=== PATIENT | female | born 1955 | race Two or more races ===

== ENCOUNTER 2018-08-09 11:02 | Outpatient (CLI) | payer OTHER ==
[~2018-08-09 11:02] MED LIST: CLONAZEPAM0.5 MG; GABAPENTIN400 MG; GLIMEPIRIDE4 MG; LASIX20 MG; METFORMIN HCL500 MG; PNEU16DI2; ZESTRIL20 MG
== END 2018-08-09 11:15 | disposition home or self-care (01) ==
LOC: RAD 11:02
DX: M25.561 Pain in right knee (principal); M25.562 Pain in left knee

== ENCOUNTER 2018-08-15 08:24 | Outpatient (CLI) | payer OTHER | END 2018-08-15 08:27 | disposition home or self-care (01) | LOC: MAMO-SONO 08:24 | DX: Z12.31 Encounter for screening mammogram for malignant neoplasm of breast (principal); Z87.898 Personal history of other specified conditions ==

== ENCOUNTER 2020-04-09 19:57 | Inpatient (IN) | payer OTHER ==
[~2020-04-09] VITALS: Ht 162.6 cm; Wt 77.1 kg
[2020-04-09] MEDS ORDERED: ZANAFLEX2 M1 (20:21)
[2020-04-09] MEDS ORDERED: VASOTEC20 M1 (20:21)
[2020-04-09] MEDS ORDERED: AMLODIPINE-OLM1 EAC2 (20:22)
[2020-04-09] MEDS ORDERED: ACTOS45 MG (20:22)
[2020-04-09] MEDS ORDERED: NAPR500T14 (20:22)
[2020-04-09] MEDS ORDERED: SIMVASTATIN5 MG (20:23)
[2020-04-12] MEDS ORDERED: Lantus 1000 UNITS/10 SUBCUTANEO (12:35)
[2020-04-12] MEDS ORDERED: SIMVASTATIN20 MG PO (12:35)
[2020-04-12] MEDS ORDERED: VASOTEC20 M1 PO (12:35)
[2020-04-12] MEDS ORDERED: HUMALOG100 UNIT/1 SUBCUTANEO (12:35)
[2020-04-12] MEDS ORDERED: AMLODIPINE BESYL5 MG PO (12:35)
== END 2020-04-12 14:00 | disposition home or self-care (01) | DRG 638 ==
LOC: ER 19:57 → ICU-2 23:57 → MEDJ 04-10 13:18
PROVIDERS: ADMIT Specialist; ATTEND Specialist
DX: E11.10 Type 2 diabetes mellitus with ketoacidosis without coma (principal); L02.31 Cutaneous abscess of buttock; Z20.828 Contact with and (suspected) exposure to other viral communicable diseases; E11.44 Type 2 diabetes mellitus with diabetic amyotrophy; E11.65 Type 2 diabetes mellitus with hyperglycemia; I11.9 Hypertensive heart disease without heart failure

== ENCOUNTER 2020-10-28 12:26 | Outpatient (CLI) | payer OTHER ==
[~2020-10-28 12:26] MED LIST changes: +ACTOS45 MG; +AMLODIPINE BESYL5 MG PO; +AMLODIPINE-OLM1 EAC2; +HUMALOG100 UNIT/1 SUBCUTANEO; +Lantus 1000 UNITS/10 SUBCUTANEO; +NAPR500T14; +SIMVASTATIN20 MG PO; +SIMVASTATIN5 MG; +VASOTEC20 M1; +VASOTEC20 M1 PO; +ZANAFLEX2 M1
== END 2020-10-28 12:30 | disposition home or self-care (01) ==
LOC: MAMO-SONO 12:26
PROVIDERS: ATTEND Specialist
DX: Z12.31 Encounter for screening mammogram for malignant neoplasm of breast (principal)

== ENCOUNTER 2023-03-10 08:34 | Outpatient (CLI) | payer OTHER | END 2023-03-10 08:39 | disposition home or self-care (01) | LOC: RAD 08:34 | PROVIDERS: ATTEND Specialist | DX: M25.562 Pain in left knee (principal); M25.561 Pain in right knee ==

== ENCOUNTER 2023-07-06 12:12 | Outpatient (CLI) | payer OTHER | END 2023-07-06 12:19 | disposition home or self-care (01) | LOC: MAMO-SONO 12:12 | PROVIDERS: ATTEND Specialist | DX: Z12.31 Encounter for screening mammogram for malignant neoplasm of breast (principal) ==

== ENCOUNTER 2023-11-21 18:21 | Emergency (ER) | payer OTHER ==
[~2023-11-21] VITALS: Ht 162.6 cm; Wt 86.2 kg
[2023-11-21 20:13] LABS: HEMATOCRIT 37.2 % (36.0-45.00); HEMOGLOBIN 12.3 g/dL (12.0-15.00); MEAN CELL VOLUME 81.6 fL (80.00-100.00); MEAN CORPUSCULAR HEMOGLOBIN 27.1 pg (27.00-32.0); MEAN CORPUSCULAR HGB CONC 33.2 g/dl (32.0-36.0); PLATELET COUNT 308 K/uL (150-450); RED BLOOD COUNT 4.56 M/uL (4.00-6.00); RED CELL DISTRIBUTION WIDTH 13.2 % (11.5-14.5)
[2023-11-21 20:32] LABS: URINE APPEARANCE Cloudy; URINE BILIRRUBIN Negative (NEGATIVE); URINE BLOOD Large; URINE COLOR Orange; URINE LEUKOCYTE Small; URINE NITRATE Negative; URINE PROTEIN Trace (NEGATIVE)
[2023-11-21 20:34] LABS: INR 0.96; PARTIAL THROMBOPLASTIN TIME 23.9 SECONDS (22.0-34.0); PROTHROMBIN TIME 10.1 SECONDS (9.0-11.5)
[2023-11-21 20:35] LABS: CREATININE SERUM 1.15 mg/dL (0.55-1.02); GFR 46.92; POTASSIUM 4.36 mEq/L (3.5-5.1)
[2023-11-21 20:37] LABS: URINE BACTERIA 149.9 uL (0.0-1933); URINE EPITHELIAL CELLS 10.8 uL (0.0-38.8); URINE WBC 259.1 uL (0.0-23.2)
[2023-11-21 21:12] LABS: URINE GLUCOSE >=1000 MG/DL (NEGATIVE); URINE RBC > 10558.9 uL (0.0-20.8)
== END 2023-11-22 00:03 | disposition home or self-care (01) ==
LOC: ER 18:22
PROVIDERS: General Practice
DX: N94.89 Other specified conditions associated with female genital organs and menstrual cycle (principal); N93.8 Other specified abnormal uterine and vaginal bleeding; I10 Essential (primary) hypertension; E11.9 Type 2 diabetes mellitus without complications; Z79.84 Long term (current) use of oral hypoglycemic drugs; Z88.0 Allergy status to penicillin

== ENCOUNTER 2024-01-20 10:34 | Outpatient (CLI) | payer OTHER ==
[2024-01-20 11:48] LABS: CREATININE SERUM 0.86 mg/dL (0.55-1.02)
== END 2024-01-20 10:35 | disposition home or self-care (01) ==
LOC: LAB 10:34
PROVIDERS: ATTEND Radiology Diagnostic Radiology
DX: C54.0 Malignant neoplasm of isthmus uteri (principal)

== ENCOUNTER 2024-02-03 08:34 | Outpatient (CLI) | payer OTHER | END 2024-02-03 08:49 | disposition home or self-care (01) | LOC: TOM 08:34 | PROVIDERS: ATTEND Obstetrics & Gynecology | DX: C54.0 Malignant neoplasm of isthmus uteri (principal) | CPT/HCPCS: 74178; Q9965 ==

== ENCOUNTER 2024-09-04 08:00 | Outpatient (CLI) | payer OTHER | END 2024-09-04 23:00 | disposition home or self-care (01) | LOC: EKG 08:00 → LAB 09-06 07:52 → EKG 09-06 07:53 | PROVIDERS: ATTEND Specialist | DX: R00.2 Palpitations (principal); I11.9 Hypertensive heart disease without heart failure ==

== ENCOUNTER 2024-10-16 16:18 | Emergency (ER) | payer OTHER ==
[~2024-10-16] VITALS: Ht 162.6 cm; Wt 73.9 kg
[2024-10-16] MEDS ORDERED: ELIQUIS5 M1 (18:07)
[2024-10-16] MEDS ORDERED: CARVEDILOL12.5 MG (18:07)
[2024-10-16] MEDS ORDERED: IPRATROPIUM BROMIDE 0.5 MG/2.5 ML AMPUL.NEB IH SCH (19:30)
[2024-10-16] MEDS ORDERED: LEVALBUTEROL HCL 0.63 MG/3 ML SOLUTION IH SCH (19:30)
[2024-10-16] MEDS ORDERED: METHYLPREDNISOLONE SOD SUCC 125 MG VIAL IV ONE (19:30)
[2024-10-16 19:54] LABS: BASO % 0.6 % (0.1-1.2); EOS # 0.02 (0.04-0.54); EOS % 0.3 % (0.7-7.0); HEMATOCRIT 38.4 % (34.1-44.9); MEAN CORPUSCULAR HEMOGLOBIN 24.9 pg (25.6-32.2); MONO % 6.5 % (4.7-12.5); NEUT % 45.4 % (34.0-71.1); PLATELET COUNT 196 K/uL (163-369); RED BLOOD COUNT 4.82 M/uL (3.93-5.22); RED CELL DISTRIBUTION WIDTH 14.6 % (11.6-14.4)
[2024-10-16] MEDS ORDERED: LEVALBUTEROL HCL 0.63 MG/3 ML SOLUTION IH ONE (20:05)
[2024-10-16] MEDS ORDERED: IPRATROPIUM BROMIDE 0.5 MG/2.5 ML AMPUL.NEB IH ONE (20:05)
[2024-10-16 20:24] LABS: BASE EXCESS -4.7 mmol/l; BICARBONATE 16.9 mmol/l (23-25); SaO2 97.1 %; Tco2 17.6 mmol/l
[2024-10-16 20:26] LABS: ABG pCO2 23.7 mmHg (35-45); allen test SATISFACTORY; mode ROOM AIR; o2 21 %; puncture site RADIAL LEFT
[2024-10-16 21:12] LABS: COVID-19 AG POSITIVE (NEGATIVE)
[2024-10-16 21:30] LABS: INFLUENZA A AG NEGATIVE (NEGATIVE); INFLUENZA B AG NEGATIVE (NEGATIVE)
== END 2024-10-16 21:44 | disposition home or self-care (01) ==
LOC: ER 16:43
PROVIDERS: Emergency Medicine
DX: I10 Essential (primary) hypertension (principal); J45.901 Unspecified asthma with (acute) exacerbation; Z88.0 Allergy status to penicillin; I49.8 Other specified cardiac arrhythmias; U07.1 COVID-19
CPT/HCPCS: 36415; 71046; 82803; 94640; 96365; 99284; J3490

== ENCOUNTER → 2024-10-20 08:43 | Outpatient (CLI) | payer OTHER ==
[~2024-10-20 08:43] MED LIST changes: +CARVEDILOL12.5 MG; +ELIQUIS5 M1
[2024-10-20 09:25] LABS: PH,URINE 5.5 (5.0-8.0); URINE APPEARANCE Cloudy; URINE BILIRRUBIN Negative (NEGATIVE); URINE BLOOD Negative; URINE COLOR Dark Yellow; URINE GLUCOSE Negative (NEGATIVE); URINE KETONE Trace (NEGATIVE); URINE LEUKOCYTE Small; URINE NITRATE Negative
[2024-10-20 09:29] LABS: URINE BACTERIA 287.6 uL (0.0-1933); URINE CAST 3.68 uL (0.0-1.40); URINE EPITHELIAL CELLS 41.1 uL (0.0-38.8); URINE RBC 4.8 uL (0.0-20.8); URINE WBC 41.9 uL (0.0-23.2)
[2024-10-20 10:07] LABS: CALCIUM 8.6 mg/dL (8.5-10.1); CREATININE SERUM 1.06 mg/dL (0.55-1.02); GFR 51.55; POTASSIUM 3.6 mEq/L (3.5-5.1)
[2024-10-20 10:38] LABS: URINE MUCUS MODERATE; URINE PROTEIN 100 (NEGATIVE)
== END | disposition home or self-care (01) ==
LOC: LAB 08:43
PROVIDERS: ATTEND Specialist
DX: E11.65 Type 2 diabetes mellitus with hyperglycemia (principal); N39.0 Urinary tract infection, site not specified

== ENCOUNTER 2024-10-23 08:20 | Outpatient (CLI) | payer OTHER | END 2024-10-23 08:21 | disposition home or self-care (01) | LOC: NUCLEAR 08:20 | PROVIDERS: ATTEND Specialist | DX: I48.91 Unspecified atrial fibrillation (principal); I10 Essential (primary) hypertension ==

== ENCOUNTER 2024-12-03 17:26 | Inpatient (IN) | payer OTHER ==
[~2024-12-03] VITALS: Ht 162.6 cm; Wt 72.6 kg
[2024-12-03] MEDS ORDERED: FAMOTIDINE/PF 20 MG in 0.9 % SODIUM CHLORIDE 8 ML IV PUSH STA (18:06)
[2024-12-03] MEDS ORDERED: ONDANSETRON HCL 2 MG/ML VIAL ONE (18:07)
[2024-12-03] MEDS ORDERED: FAMOTIDINE/PF 20 MG/2 ML VIAL ONE ×2 (18:08→23:28)
[2024-12-03] MEDS ORDERED: 0.9 % SODIUM CHLORIDE 1,000 ML IV SCH (18:15)
[2024-12-03] MEDS ORDERED: ONDANSETRON HCL 2 MG/ML VIAL IV ONE (18:15)
[2024-12-03] MEDS ORDERED: INSULIN REGULAR, HUMAN 1,000 UNIT/10 ML UNITS IV ONE (18:15)
[2024-12-03 18:50] LABS: BASO % 0.2 % (0.1-1.2); EOS # 0.02 (0.04-0.54); EOS % 0.2 % (0.7-7.0); LYMPH # 1.87 (1.18-3.74); LYMPH % 18.6 % (19.3-53.1); MEAN PLATELET VOLUME 12.70 fl (9.4-12.4); MONO # 0.60 (0.24-0.82); MONO % 6.0 % (4.7-12.5); NEUT # 7.47 (1.56-6.13); NEUT % 74.5 % (34.0-71.1); RED CELL DISTRIBUTION WIDTH 16.2 % (11.6-14.4)
[2024-12-03 19:01] LABS: ALT/SGPT 92.0 U/L (12-78); AST/SGOT 80.0 U/L (15-37); BILIRUBIN TOTAL 2.81 mg/dL (0.3-1.2); BUN CREA RATIO 28.0 (7.0-25.0); CREATININE SERUM 1.77 mg/dL (0.55-1.02); GFR 28.44; GLOBULINA 2.9 G/DL (2.4-3.5); LDH 349.0 U/L (84-246); PHOSPHOKINASE CREATININE 88.0 U/L (26-192)
[2024-12-03 19:03] LABS: OSMOLALITY SERUM 307.0 MOSM/KG (275-295)
[2024-12-03 19:04] LABS: GLUCOSE FASTING 620.0 mg/dL (65-100)
[2024-12-03 19:11] LABS: COVID-19 AG NEGATIVE (NEGATIVE)
[2024-12-03] MEDS ORDERED: NITROGLYCERIN IN 5 % DEXTROSE 50 MG/250 ML BOTTLE IV ONE (19:52)
[2024-12-03] MEDS ORDERED: NITROGLYCERIN 250 ML IV SCH (20:00)
[2024-12-03] MEDS ORDERED: AMIODARONE HCL 50 MG/ML AMPUL IV ONE ×2 (20:33→20:45)
[2024-12-03] MEDS ORDERED: IPRATROPIUM BROMIDE 0.5 MG/2.5 ML AMPUL.NEB IH SCH (20:39)
[2024-12-03] MEDS ORDERED: ATORVASTATIN CALCIUM 40 MG TABLET PO SCH (20:41)
[2024-12-03] MEDS ORDERED: FAMOTIDINE/PF 20 MG in 0.9 % SODIUM CHLORIDE 8 ML IV PUSH SCH (20:41)
[2024-12-03] MEDS ORDERED: ACETAMINOPHEN 500 MG GEL..CAP PO PRN (20:45)
[2024-12-03] MEDS ORDERED: DEXTROSE 50 % IN WATER 0.5 G/ML DISP.SYRIN IV PRN (20:45)
[2024-12-03] MEDS ORDERED: INSULIN LISPRO 1,000 UNIT/10 ML UNITS SUBCUTANEO PRN (20:45)
[2024-12-03] MEDS ORDERED: ENOXAPARIN SODIUM 80 MG/0.8 ML SYRINGE SUBCUTANEO SCH (21:00)
[2024-12-03 21:01] LABS: URINE APPEARANCE Clear; URINE BILIRRUBIN Negative (NEGATIVE); URINE BLOOD Negative; URINE COLOR Yellow; URINE KETONE Trace (NEGATIVE); URINE LEUKOCYTE Negative; URINE NITRATE Negative; URINE PROTEIN 30 (NEGATIVE); URINE UROBILINOGEN 1.0 E.U./dl
[2024-12-03 21:04] LABS: URINE BACTERIA 5090.2 uL (0.0-1933); URINE CAST 5.71 uL (0.0-1.40); URINE EPITHELIAL CELLS 4.4 uL (0.0-38.8); URINE RBC 8.5 uL (0.0-20.8); URINE WBC 8.4 uL (0.0-23.2)
[2024-12-03 21:16] LABS: URINE GLUCOSE >=1000 MG/DL (NEGATIVE)
[2024-12-03 22:16] LABS: ABG PH 7.346 (7.35-7.45); ABG PO2 74.8 mmHg (80-100); BICARBONATE 12.8 mmol/l (23-25)
[2024-12-03 22:47] LABS: o2 21 %
[2024-12-03 23:00] VITALS: BP 104/70; O2SAT 100
[2024-12-03 23:40] LABS: INR 1.3
[2024-12-04] VITALS (14 sets, daily range): BP systolic 102–120; BP diastolic 67–92; O2SAT 96–100
[2024-12-04] MEDS ORDERED: IPRATROPIUM BROMIDE 0.5 MG/2.5 ML AMPUL.NEB IH ONE (01:42)
[2024-12-04] MEDS ORDERED: AMIODARONE HCL 450 MG in DEXTROSE 5 % IN WATER 250 ML IV SCH (06:30)
[2024-12-04] MEDS ORDERED: NITROGLYCERIN IN 5 % DEXTROSE 250 ML IV SCH (06:30)
[2024-12-04] MEDS ORDERED: AMIODARONE HCL 900 MG in DEXTROSE 5 % IN WATER 500 ML IV SCH (07:00)
[2024-12-04] MEDS ORDERED: METOPROLOL SUCCINATE 25 MG TAB.SR.24H PO STA (07:29)
[2024-12-04 08:02] LABS: CHOL HDL RATIO 4.1 (0-5.0); HDL 31.0 mg/dl (40-60); LDL 75.0 mg/dl (0-130); TSH 1.78 uIU/mL (0.358-3.74); VLDL 22.0 (0-39)
[2024-12-04] MEDS ORDERED: METOPROLOL SUCCINATE 25 MG TAB.SR.24H PO SCH (09:00)
[2024-12-04] MEDS ORDERED: PANTOPRAZOLE SODIUM 40 MG TABLET.DR PO SCH (09:00)
[2024-12-04 10:15] LABS: ABG PH 7.384 (7.35-7.45); ABG PO2 80.7 mmHg (80-100); BICARBONATE 15.0 mmol/l (23-25)
[2024-12-04 10:40] LABS: BASO % 0.4 % (0.1-1.2); EOS # 0.05 (0.04-0.54); EOS % 0.4 % (0.7-7.0); LYMPH # 2.28 (1.18-3.74); LYMPH % 19.6 % (19.3-53.1); MEAN PLATELET VOLUME 11.70 fl (9.4-12.4); MONO # 0.76 (0.24-0.82); MONO % 6.5 % (4.7-12.5); NEUT # 8.43 (1.56-6.13); NEUT % 72.6 % (34.0-71.1); RED CELL DISTRIBUTION WIDTH 16.0 % (11.6-14.4)
[2024-12-04 11:08] LABS: ALT/SGPT 167.0 U/L (12-78); AST/SGOT 204.0 U/L (15-37); BILIRUBIN TOTAL 2.81 mg/dL (0.3-1.2); BUN CREA RATIO 32.0 (7.0-25.0); CREATININE SERUM 1.6 mg/dL (0.55-1.02); GFR 31.96; GLOBULINA 2.8 G/DL (2.4-3.5); GLUCOSE FASTING 190.0 mg/dL (65-100); OSMOLALITY SERUM 289.0 MOSM/KG (275-295)
[2024-12-04 11:30] LABS: o2 32 %
[2024-12-04] MEDS ORDERED: SODIUM BICARBONATE 1 MEQ/ML DISP.SYRIN 50ML IV SCH (12:15)
[2024-12-04] MEDS ORDERED: SODIUM CHLORIDE 0.45% IV ONE (13:15)
[2024-12-04] MEDS ORDERED: SODIUM BICARBONATE IV ONE (13:15)
[2024-12-04 16:39] LABS: INR 1.31
[2024-12-04] MEDS ORDERED: INSULIN LISPRO 1,000 UNIT/10 ML UNITS SUBCUTANEO ONE (17:49)
[2024-12-05] VITALS (15 sets, daily range): BP systolic 96–120; BP diastolic 59–86; O2SAT 93–100
[2024-12-05] MEDS ORDERED: INSULIN LISPRO 1,000 UNIT/10 ML UNITS SUBCUTANEO ONE ×2 (05:57→11:59)
[2024-12-05] MEDS ORDERED: AMIODARONE HCL 200 MG TABLET PO STA (06:24)
[2024-12-05 07:52] LABS: BASO % 0.3 % (0.1-1.2); EOS # 0.10 (0.04-0.54); EOS % 1.1 % (0.7-7.0); LYMPH # 1.76 (1.18-3.74); LYMPH % 19.3 % (19.3-53.1); MEAN PLATELET VOLUME 11.70 fl (9.4-12.4); MONO # 0.48 (0.24-0.82); MONO % 5.3 % (4.7-12.5); NEUT # 6.74 (1.56-6.13); NEUT % 73.8 % (34.0-71.1); RED CELL DISTRIBUTION WIDTH 16.2 % (11.6-14.4)
[2024-12-05 08:25] LABS: ALT/SGPT 164.0 U/L (12-78); AST/SGOT 132.0 U/L (15-37); BILIRUBIN TOTAL 1.74 mg/dL (0.3-1.2); BUN CREA RATIO 31.0 (7.0-25.0); CREATININE SERUM 1.76 mg/dL (0.55-1.02); GFR 28.63; GLOBULINA 2.8 G/DL (2.4-3.5); OSMOLALITY SERUM 302.0 MOSM/KG (275-295)
[2024-12-05 08:28] LABS: GLUCOSE FASTING 301.0 mg/dL (65-100)
[2024-12-05] MEDS ORDERED: AMIODARONE HCL 200 MG TABLET PO SCH (09:00)
[2024-12-05] MEDS ORDERED: APIXABAN 5 MG TABLET PO SCH (09:00)
[2024-12-05] MEDS ORDERED: Cyanocobalamin/Mecobalamin 1 TAB.SL SL SCH (09:00)
[2024-12-05] MEDS ORDERED: SPIRONOLACTONE 25 MG TABLET PO SCH (09:00)
[2024-12-05] MEDS ORDERED: SOD FERRIC GLUC COMPLX/SUCROSE 62.5 MG in 0.9 % SODIUM CHLORIDE 50 ML IV SCH (09:00)
[2024-12-05] MEDS ORDERED: ISOSORBIDE MONONITRATE 30 MG TABLET PO SCH (09:00)
[2024-12-05] MEDS ORDERED: INSULIN GLARGINE,HUM.REC.ANLOG 1,000 UNITS/10 ML UNITS SUBCUTANEO SCH (09:00)
[2024-12-05] MEDS ORDERED: LOSARTAN POTASSIUM 25 MG TABLET PO SCH (09:00)
[2024-12-05] MEDS ORDERED: INSULIN GLARGINE,HUM.REC.ANLOG 1,000 UNITS/10 ML UNITS SUBCUTANEO ONE (09:30)
[2024-12-05] MEDS ORDERED: INSULIN LISPRO 1,000 UNIT/10 ML UNITS SUBCUTANEO PRN (09:30)
[2024-12-05] MEDS ORDERED: INSULIN LISPRO 1,000 UNIT/10 ML UNITS SUBCUTANEO SCH (12:30)
[2024-12-05] MEDS ORDERED: POLYETHYLENE GLYCOL 3350 17 GM BLIST.PACK PO SCH (21:00)
[2024-12-06] VITALS (8 sets, daily range): BP systolic 102–121; BP diastolic 63–89; O2SAT 90–97
[2024-12-06] MEDS ORDERED: INSULIN LISPRO 1,000 UNIT/10 ML UNITS SUBCUTANEO SCH (08:00)
[2024-12-06] MEDS ORDERED: INSULIN GLARGINE,HUM.REC.ANLOG 1,000 UNITS/10 ML UNITS SUBCUTANEO SCH (09:00)
[2024-12-07] VITALS (8 sets, daily range): BP systolic 113–130; BP diastolic 78–91; O2SAT 89–97
[2024-12-08] VITALS (7 sets, daily range): BP systolic 100–130; BP diastolic 60–75; O2SAT 92–99
[2024-12-08] MEDS ORDERED: INSULIN GLARGINE,HUM.REC.ANLOG 1,000 UNITS/10 ML UNITS SUBCUTANEO SCH (09:00)
[2024-12-09] VITALS (9 sets, daily range): BP systolic 99–118; BP diastolic 67–79; O2SAT 93–100
[2024-12-09 08:05] LABS: BUN CREA RATIO 26.0 (7.0-25.0); CREATININE SERUM 1.53 mg/dL (0.55-1.02); GFR 33.65; OSMOLALITY SERUM 296.0 MOSM/KG (275-295)
[2024-12-09 08:13] LABS: GLUCOSE FASTING 213.0 mg/dL (65-100)
[2024-12-10] VITALS (9 sets, daily range): BP systolic 103–144; BP diastolic 60–76; O2SAT 96–100
[2024-12-10] MEDS ORDERED: INSULIN LISPRO 1,000 UNIT/10 ML UNITS SUBCUTANEO SCH (08:00)
[2024-12-10] MEDS ORDERED: INSULIN GLARGINE,HUM.REC.ANLOG 1,000 UNITS/10 ML UNITS SUBCUTANEO SCH (09:00)
[2024-12-10 12:39] LABS: BASO % 0.5 % (0.1-1.2); EOS # 0.17 (0.04-0.54); EOS % 1.8 % (0.7-7.0); LYMPH # 1.79 (1.18-3.74); LYMPH % 19.4 % (19.3-53.1); MEAN PLATELET VOLUME 11.70 fl (9.4-12.4); MONO # 0.54 (0.24-0.82); MONO % 5.8 % (4.7-12.5); NEUT # 6.66 (1.56-6.13); NEUT % 72.2 % (34.0-71.1); RED CELL DISTRIBUTION WIDTH 17.6 % (11.6-14.4)
[2024-12-10 13:00] LABS: INR 1.17
[2024-12-11 01:34] VITALS: O2SAT 96
[2024-12-11 02:24] VITALS: BP 100/64; O2SAT 99
[2024-12-11 05:43] VITALS: O2SAT 97
[2024-12-11 07:00] VITALS: BP 120/62; O2SAT 89
[2024-12-11 10:49] VITALS: O2SAT 98
[2024-12-11 12:34] LABS: ABG PH 7.462 (7.35-7.45); BICARBONATE 30.1 mmol/l (23-25)
[2024-12-11 12:35] LABS: ABG PO2 56.3 mmHg (80-100); o2 21 %
== END 2024-12-11 15:06 | disposition designated cancer center or children's hospital (05) | DRG 280 ==
LOC: ER 17:26 → ICU-2 21:21 → SEC-K 12-05 06:51 → MEDJ 12-05 12:08
PROVIDERS: General Practice; Internal Medicine; Internal Medicine Nephrology; ADMIT Internal Medicine; ATTEND Internal Medicine
PROC: B24BZZZ Ultrasonography of Heart with Aorta (ICD-10-PCS; 2024-12-03)
PROC: BW40ZZZ Ultrasonography of Abdomen (ICD-10-PCS; 2024-12-04)
PROC: 4A12X4Z Monitoring of Cardiac Electrical Activity, External Approach (ICD-10-PCS; principal; 2024-12-05)
DX: I13.0 Hypertensive heart and chronic kidney disease with heart failure and stage 1 through stage 4 chronic kidney disease, or unspecified chronic kidney disease (principal); I50.23 Acute on chronic systolic (congestive) heart failure; I21.A1 Myocardial infarction type 2; I48.20 Chronic atrial fibrillation, unspecified; E78.5 Hyperlipidemia, unspecified; E11.22 Type 2 diabetes mellitus with diabetic chronic kidney disease; N18.9 Chronic kidney disease, unspecified; E11.65 Type 2 diabetes mellitus with hyperglycemia; I34.0 Nonrheumatic mitral (valve) insufficiency; D50.9 Iron deficiency anemia, unspecified; I25.10 Atherosclerotic heart disease of native coronary artery without angina pectoris